=== PATIENT | female | born 1975 | race African-American/Black ===

== ENCOUNTER 2022-06-03 18:36 | Observation (INO) ==
[2022-06-03 21:05] VITALS: O2SAT 100
[2022-06-04 00:55] LABS: Basophils % 0.6 %; Eosinophils # 0.1 K/mcL (0.0-0.6); Hematocrit 40.3 % (35.3-44.9); Hemoglobin 12.7 g/dL (11.5-15.4); Immature Granulocytes % 0.3 % (0-4); Lymphocytes # 2.6 K/mcL (0.6-4.6); Lymphocytes % 37.1 %; Mean Corpuscular HGB Conc 31.5 g/dL (31.6-35.5); Mean Corpuscular Hemoglobin 29.3 pg (28.0-33.3); Mean Corpuscular Volume 93.1 fL (83.0-100.0); Mean Platelet Volume 9.1 fL (9.4-12.4); Monocytes # 0.6 K/mcL (0.0-1.3); Monocytes % 9.1 %; Neutrophils # 3.6 K/mcL (1.6-8.9); Platelet Count 281 K/mcL (140-400); Red Blood Count 4.33 M/mcL (3.82-4.97); Red Cell Distribution Width 12.3 % (11.5-14.5); Segmented Neutrophils % 50.9 %
[2022-06-04] MEDS ORDERED: Acetaminophen 325 MG TABLET PO PRN (01:00)
[2022-06-04] MEDS ORDERED: Naloxone 0.4 MG/ML INJ IVP PRN (01:00)
[2022-06-04] MEDS ORDERED: Ondansetron 4 MG/2 ML VIAL IVP PRN (01:00)
[2022-06-04] MEDS ORDERED: Nitroglycerin 0.4 MG TAB.SUBL SL PRN (01:03)
[2022-06-04] MEDS ORDERED: Morphine Sulfate 2 MG/ML SYRINGE IVP PRN (01:03)
[2022-06-04 01:07] LABS: Estimated Average Glucose 117 mg/dl; Hemoglobin A1C 5.7 %
[2022-06-04 01:18] LABS: Albumin 4.1 g/dL (3.5-5.7); Albumin/Globulin Ratio 1.5 (1.1-2.2); Bilirubin,Direct 0.1 mg/dL (0.0-0.2); Bilirubin,Indirect 0.2 mg/dL (0.0-1.0); Bilirubin,Total 0.3 mg/dL (0.3-1.0); Calcium 9.2 mg/dL (8.6-10.3); Globulin 2.7 g/dL (2.4-3.5); Total Protein 6.8 g/dL (6.4-8.9)
[2022-06-04 01:30] LABS: Thyroid Stimulating Hormone 1.927 mcIU/mL (0.340-5.600)
[2022-06-04 03:14] VITALS: TEMP 98.2
[2022-06-04] MEDS ORDERED: *HR* Heparin 5,000 UNIT/ML VIAL SQ SCH (06:00)
[2022-06-04 07:02] VITALS: BP 120/73; PULSE 67
[2022-06-04] MEDS ORDERED: Regadenoson 0.4 MG/5 ML SYRINGE IVP ONE (07:14)
[2022-06-04 08:40] LABS: Troponin I < 0.03 ng/mL (< 0.04)
[2022-06-04 08:49] LABS: Chol/HDL Ratio 3.1 (0-4.9); Cholesterol 277 mg/dL (< 200); HDL Cholesterol 89 mg/dL (40-59); LDL Cholesterol,Calculated 163 mg/dL (< 100); Triglycerides 124 mg/dL (< 150)
[2022-06-04] MEDS ORDERED: Aspirin Enteric Coated 81 MG Tablet PO SCH (09:00)
== END 2022-06-04 16:58 | disposition home or self-care (01) ==
LOC: 3BNU
PROVIDERS: ADMIT Internal Medicine; ATTEND Internal Medicine